=== PATIENT | female | born 1995 | race Caucasian/White ===

== ENCOUNTER 2019-07-22 20:06 | Emergency (ER) | payer MEDICAID | END 2019-07-22 22:42 | disposition left against medical advice (07) | LOC: ER 20:06 | DX: Z53.21 Procedure and treatment not carried out due to patient leaving prior to being seen by health care provider (principal) ==

== ENCOUNTER 2019-08-24 07:59 | Emergency (ER) | payer MEDICAID ==
[2019-08-24 09:08] LABS: HEMATOCRIT 33.3 % (36.0-47.0); HEMOGLOBIN 10.9 g/dL (12.0-15.5); MEAN CORPUSCULAR HGB CONC 32.6 g/dL (32.0-36.0); MEAN CORPUSCULAR VOLUME 77 fl (80-97); PLATELET COUNT 368 10^3/uL (150-450); RED BLOOD COUNT 4.35 10^6/uL (3.72-5.28); RED CELL DISTRIBUTION WIDTH 14.7 % (11.5-14.0); WHITE BLOOD COUNT 13.9 10^3/uL (4.0-10.5)
[2019-08-24] MEDS ORDERED: ACETAMINOPHEN 325 MG TABLET PO ONE (09:08)
[2019-08-24 09:23] LABS: ABSOLUTE LYMPHOCYTES# (MANUAL) 0.4 10^3/uL (0.5-4.7); ABSOLUTE MONOCYTES # (MANUAL) 0.1 10^3/uL (0.1-1.4); BASOPHILS % (MANUAL) 0 % (0-2); EOSINOPHILS % (MANUAL) 0 % (0-6); LYMPHOCYTES % (MANUAL) 3 % (13-45); MONOCYTES % (MANUAL) 1 % (3-13); SEGMENTED NEUTROPHILS % (MAN) 96 % (42-78); TOTAL CELLS COUNTED 100
[2019-08-24] MEDS ORDERED: CEFTRIAXONE INJ 250 MG VIAL IV ONE (09:23)
[2019-08-24 09:24] LABS: OVALOCYTES SLIGHT; POIKILOCYTOSIS SLIGHT
[2019-08-24 09:25] LABS: PLATELET COMMENT ADEQUATE
[2019-08-24 09:54] LABS: ALBUMIN 4.4 g/dL (3.5-5.0); ALKALINE PHOSPHATASE 74 U/L (38-126); ANION GAP 14 (5-19); ASPARTATE AMINO TRANSFERASE 22 U/L (14-36); BILIRUBIN,DIRECT 0.1 mg/dL (0.0-0.4); BILIRUBIN,TOTAL 0.4 mg/dL (0.2-1.3); BLOOD UREA NITROGEN 9 mg/dL (7-20); CALCIUM 9.5 mg/dL (8.4-10.2); CARBON DIOXIDE 20 mmol/L (22-30); CHLORIDE 108 mmol/L (98-107); GLUCOSE 103 mg/dL (75-110); POTASSIUM 3.9 mmol/L (3.6-5.0); TOTAL PROTEIN 7.6 g/dL (6.3-8.2)
[2019-08-24 10:21] LABS: APPEARANCE,URINE SLIGHTLY-CLOUDY; BILIRUBIN,URINE NEGATIVE (NEGATIVE); COLOR,URINE YELLOW; GLUCOSE, URINE NEGATIVE (NEGATIVE); KETONES,URINE 80 mg/dL (NEGATIVE); LEUKOCYTE ESTERASE,URINE NEGATIVE (NEGATIVE); NITRITE,URINE NEGATIVE (NEGATIVE); PROTEIN,URINE 30 mg/dL (NEGATIVE); UROBILINOGEN,URINE NEGATIVE mg/dL (<2.0)
--- NOTE | 2019-08-24 10:27 | ER Document Report ---
ED ENT - General Chief Complaint: Sore Throat Stated Complaint: VOMITING Time Seen by Provider: 08/24/19 09:18 Mode of Arrival: Ambulatory Information source: Patient, Parent TRAVEL OUTSIDE OF THE [place] IN LAST 30 DAYS: No - HPI Patient complains to provider of: Throat problem - pt. with h/o tonsillitis with c/o ST and intermittent vomiting with fever to 101 for the past 2-3 days. Is able to take liquids ok but having some trouble swallowing solid foods - Related Data Allergies/Adverse Reactions: erythromycin base [Erythromycin Base] Allergy (Verified 08/24/19 08:36) Past Medical History - General Information source: Patient, Parent - Social History Smoking Status: Never Smoker Frequency of alcohol use: None Drug Abuse: None Family History: Reviewed & Not Pertinent Patient has suicidal ideation: No Patient has homicidal ideation: No - Immunizations Hx Diphtheria, Pertussis, Tetanus Vaccination: Yes Review of Systems - Review of Systems Constitutional: See HPI, Fever EENT: See HPI, Throat pain Cardiovascular: No symptoms reported Respiratory: No symptoms reported Gastrointestinal: See HPI, Vomiting Musculoskeletal: No symptoms reported Neurological/Psychological: No symptoms reported -: Yes All other systems reviewed and negative Physical Exam - Vital signs Vitals: Temp Pulse Resp BP Pulse Ox 99.7 F 153 H 18 103/71 100 08/24/19 08:06 08/24/19 08:06 08/24/19 08:06 08/24/19 08:06 08/24/19 08:06 - General General appearance: Appears well In distress: None - HEENT Pharynx: Erythema - there is moderate erythema of the posterior pharyx without exudate and only minimal tonsillar hypertrophy. There is no uvular displacement Neck: Anterior cervical chain - Respiratory Respiratory status: No respiratory distress Breath sounds: Normal - Cardiovascular Rhythm: Tachycardia Heart sounds: Normal auscultation Murmur: No - Abdominal Bowel sounds: Normal Tenderness: Nontender Course - Re-evaluation Re-evalutation: 08/24/19 10:31 Pt, felt better after IVF and abx. HR now 95. Expressed desire to go home with mom. - Vital Signs Vital signs: Temp Pulse Resp BP Pulse Ox 102.5 F H 153 H 16 103/67 100 08/24/19 09:05 08/24/19 08:06 08/24/19 08:38 08/24/19 08:38 08/24/19 08:38 - Laboratory Result Diagrams: 08/24/19 08:50 08/24/19 08:50 Laboratory results interpreted by me: 08/24/19 08/24/19 08/24/19 08:50 08:50 09:59 WBC 13.9 H Hgb 10.9 L Hct 33.3 L MCV 77 L MCH 25.0 L RDW 14.7 H Seg Neuts % (Manual) 96 H Lymphocytes % (Manual) 3 L Monocytes % (Manual) 1 L Abs Neuts (Manual) 13.3 H Abs Lymphs (Manual) 0.4 L Chloride 108 H Carbon Dioxide 20 L Urine Protein 30 H Urine Ketones 80 H Discharge - Discharge Clinical Impression: Strep pharyngitis Condition: Stable Disposition: HOME, SELF-CARE Instructions: Acetaminophen, Fever ([facility]), Strep Throat ([facility]) Additional Instructions: rest, salt water gargle, take meds as prescribed, return if worse Prescriptions: Amox Tr/Potassium Clavulanate [Augmentin 875-125 mg Tablet] 1 tab PO BID #20 tablet Referrals: JADE SANTOS MD [ACTIVE STAFF] - Follow up as needed
[2019-08-24 11:02] VITALS: BP 96/67
== END 2019-08-24 11:02 | disposition home or self-care (01) ==
LOC: ER 07:59
DX: J02.0 Streptococcal pharyngitis (principal); R50.9 Fever, unspecified; R00.0 Tachycardia, unspecified; R11.10 Vomiting, unspecified; R13.10 Dysphagia, unspecified; Z88.1 Allergy status to other antibiotic agents
CPT/HCPCS: 99283; 96365; 36415; 87040; 87880; 85025; 87077; 80053; 81001; 87150 ×26; J3490; J0696